=== PATIENT | male | born 1960 | race African-American/Black ===

== ENCOUNTER 2020-03-14 14:12 | Inpatient (IN) | payer OTHER, SELFPAY ==
[2020-03-14 16:28] VITALS: BMI 23.8
[2020-03-14] MEDS ORDERED: Ondansetron ODT 4 MG TAB SL PRN (17:13)
[2020-03-14] MEDS ORDERED: Ondansetron PF 4 MG/2 ML Vial IVP PRN (17:13)
[2020-03-14] MEDS ORDERED: Acetaminophen 325 MG TAB PO PRN (17:13)
[2020-03-14 17:17] LABS: Actual Bicarbonate (HCO3a) 19.9 mEq/L (22-28); Base Excess (BEa) -2.6 mEq/L (-2.0 to +3.0); CO2 Tension 29.1 mmHg (35.0-45.0); Calcium, Ionized (arterial) 1.11 mmol/L (1.12-1.30); Carboxyhemoglobin (COHb) 0.7 gm% (0.0-3.0); Hemoglobin (Hb) 15.1 g/dL (14.0-18.0); O2 Tension (PaO2), arterial 63.2 mmHg (80.0-100.0); Potassium - ABG Lab 4.31 mmol/L (3.70-5.30); Puncture Site LB; pH, Arterial 7.45 (7.35-7.45)
[2020-03-14 17:42] LABS: Troponin I 0.014 ng/mL (< 0.028)
--- NOTE | 2020-03-14 18:24 | PDOC.FPRHP ---
- History of Present Illness Chief Complaint: SOB History of Present Illness: Pt is a 59yo male with hx of COVID + on 03/13 who presents with SOB. "Breathing shallow" since yesterday, and felt badly dehydrated. Got results of COVID test yesterday. Last started with sx of productive cough with yellow sputum , body ache, fever. Temp at home 102F. When to ED on , was swabbed for COVID. 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 No N/V, diarrhea, CP, dizziness. No PCP. ED Course: Azithromycin, Rocephin, Decadron, 1L NS, 3L NC, ASA, motrin, tylenol - Allergies/Adverse Reactions Allergies Allergy/AdvReac Type Severity Reaction Status Date / Time No Known Allergies Allergy Verified 03/14/20 16:26 - Home Medications Medication Instructions Recorded Confirmed Type Albuterol Sulfate [Albuterol 2 puff IH Q4HR PRN 03/14/20 03/14/20 History Sulfate Hfa] - History PMHx: none PSHx: none FHx:mom- DM Social: no Tobacco, occasional use of alcohol, no drug use, lives by himself in [place] - Review of Systems General: reports: fever/chills, fatigue Eyes: denies: vision changes ENT: denies: nasal congestion Respiratory: reports: cough, shortness of breath Cardiovascular: denies: chest pain, palpitation Gastrointestinal: denies: nausea, vomiting, diarrhea Musculoskeletal: reports: pain Neurological: denies: numbness, syncope - Vital signs BP: 129/69, HR 82, RR 20, T 98.3F, O2 98% on 3L NC - Physical Exam Constitutional: NAD, awake, alert and oriented HEENT: normocephalic and atraumatic, grossly normal vision, grossly normal hearing Neck: supple, FROM Heart: RRR, normal S1/S2, no murmurs/rubs/gallops Lungs: CTAB, no respiratory distress, no wheezing -Lungs: on NC Abdomen: soft, non-tender, no masses/distention Musculoskeletal: normal structure, normal tone Neurological: no focal deficit Skin: no rash/lesions, good turgor Psychiatric: normal mood and affect, intact recent and remote memory FMR H&P: Results - Labs Lab results: ABG pH 7.45 (7.35-7.45) 03/14/20 17:05 ABG pCO2 29.1 mmHg (35.0-45.0) L 03/14/20 17:05 ABG pO2 63.2 mmHg (80.0-100.0) L 03/14/20 17:05 Additional comment: CXR: mild patchy infiltrates in lingula FMR H&P: A/P - Plan #Acute Hypoxic Respiratory Failure 2/2 COVID PNA - Labs: Cr 1.71, CK 586, AST/ALT 259/269, d-dimer 0.9, procal 1.12, CRP 16.18 - Imaging: CXR showing lingula infiltrate. CTA- no PE, fatty liver - was given therapeutic lovenox in ED, change to prophylactic according to [facility] COVID algorithm - Contact/droplet precautions - pending: LDH, CRP, Ferritin - Will trend D-Dimer - Continue azithro, rocephin and dexamethasone - currently on 3L NC, will wean as tolerated - Consulted ID, Dr Luna, will wait to see if he meets criteria for remdesevir or convalescent plasma, appreciate recs #Transaminitis - likely 2/2 COVID - AST/ALT 259/269 - Will trend #YEMI - BUN/Cr 21/1.71, we do not have previous labs to compare - Will trend. PO hydrate #Hx of DM - patient denies dx of DM, found in ED records - A1c pending, If >6.5, will place on SSI #Hx of HTN - patient denies, found in ED record - currently BP normal, will monitor Diet: Reg Ppx: lovenox PCP: none Dispo: admit to tele, inpt, LOS >48 hrs Case discussed with Dr. Crocker and Dr Robb Montez FMR H&P: Upper Level - Plan Date/Time: 03/14/201823 Leann Nick, have evaluated this patient and agree with findings/plan as outlined by video editing internship resident. Pertinent changes/additions are listed here. This is a 59yo AA M with no reported PMH who presents as a direct admit from [place] [facility] for increased SOB. He was diagnosed with COVID + on 03/13. He started with symptoms last on 03/08. He said at that time he was having body aches, fever, cough, sore throat. He went to the ER due to this on and that is when he was swabbed for COVID. He did not require O2 at that time. He states he continued having occasionally fevers over the weekend. He got the call yesterday that his result was positive. He came back to the ER due to increasing SOB, described as shallow. He denies any recent fevers. He believes he got infected from a co-worker. 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 He was placed on O2 at the outside ER. Started on abx, fluid bolus, and steroids. On exam here, he states that he is feeling much better with the O2. He denies any difficulty breathing at this time, but if he got up to go anywhere would likely have some difficulty. PE is unremarkable. Patient sitting up in bed, appears comfortable. Lungs sounds, clear with good air movement. See video editing internship note for full HPI Plan: Acute Hypoxic Resp Failure 2/2 COVID PNA WBC 6, lymphocytes 12, neutrophils 81.7. Procal 1.12. CRP 16.18. Ddimer 0.9 mcg/ ml. CTA neg for PE. ABG pH 7.45, CO2 29.1, Ow 63.2, base excess -2.6. CXR showing lingula infiltrate. - Contact/droplet precautions - Will give ppx lovenox as Crcl > 30, DDimer <2000ng/ml. If condition worsens can increase to th lovenox. - LDH, CRP, Ferritin pending. - Will trend procal - Trend D-Dimer - Continue azithro, rocephin and dexamethasone - ID (Jeremy) consulted to evaluate for conv. plasma or remdesivir. Onset of symptoms 03/08. - Monitor on telemetry Transaminitis likely 2/2 COVID AST/ALT 259/269 - Will trend YEMI BUN/Cr 21/1.71 - Will trend. PO hydrate Hx of DM Per ER record, patient denies. - A1c pending. If >6.5, will place on SS Hx of HTN Again, patient denied. - Will monitor VS q 4hr. Dispo: admit to tele, inpt Diet: Reg Ppx: lovenox PCP: none Case discussed with Dr. Crocker Addendum - Attending - Attending Attestation Date/Time: 03/14/202221 I personally evaluated the patient and discussed the management with Dr. Montez/ Alda I agree with the History, Examination, Assessment and Plan documented above with any addition or exceptions noted below- 59yo AA M with no reported PMH who presents as a direct admit from [place] [facility] for increased SOB. He was diagnosed with COVID + on 03/13. He started with symptoms last on 03/08. He said at that time he was having body aches, fever, cough, sore throat. He went to the ER due to this on and that is when he was swabbed for COVID. He did not require O2 at that time. He states he continued having occasionally fevers over the weekend. He got the call yesterday that his result was positive. He came back to the ER due to increasing SOB, described as shallow. He denies any recent fevers. PMH/PSH/Meds/SH reviewed and agree with resident's documentation. Afebrile VSS. Exam repeated by me and agree with resident's findings. Labs: WBC=6.0, H/H=15.8/50.8, Iwp=856, Rd=336, K=4.1, BUN/ Cr=21/1.71, Eakx=772, D-dimer=0.90, CRP=16.18, ABG=7.45/29/63/20 92%, INR=1.0. CTA chest- no PE. A/P: 1) Acute resp failure secondary to COVID 19 pneumonia - Saturating well with NC; continue to monitor for s/sx of decompensation. 2) COVID 19 pneumonia - continue rocephin and azithromycin. Started on dexamethasone. ID consulted; consider convalescent plasma. Monitor ferritin, LDH , D-dimer. Continue lovenox prophylaxis. 3) Transaminitis - possibly secondary to COVID; also fatty liver seen on CTA may be another etiology. Will check acute hepatitis panel.
[2020-03-14 20:27] LABS: Hemoglobin A1c 6.8 % (4.0-6.0)
[2020-03-14 20:44] LABS: Troponin I Less than 0.010 ng/mL (< 0.028)
[2020-03-14] MEDS ORDERED: Enoxaparin Sodium 40 MG/0.4 ML SYRINGE SC SCH (21:00)
[2020-03-14] MEDS ORDERED: Dexamethasone 4 mg/ml Vial SLOW IVP SCH (21:00)
[2020-03-14] MEDS ORDERED: Dextrose 50% Abboject 50 ML SYRINGE SLOW IVP PRN (21:10)
[2020-03-14] MEDS ORDERED: Dextrose 5% in Water 1,000 ML IV PRN (21:10)
[2020-03-14] MEDS ORDERED: HumaLOG 300 UNITS/3 ML VIAL SC PRN (21:10)
[2020-03-14 23:08] LABS: Syphilis Antibody Nonreactive (Nonreactive); Syphilis Antibody Index 0.25 S/CO (<1.00 Non-Reactive)
[2020-03-14 23:22] LABS: HBSAg Index 0.17 S/CO (0-0.99); Hep B Surf Ag Non-Reactive S/CO (NonReactive); Hep C IgG Ab Non-Reactive (NonReactive); Hep C Index 0.04 S/CO (0-0.79)
[2020-03-14 23:23] LABS: Hep A IgM AB Non-Reactive (NonReactive); Hep A IgM S/CO 0.19 S/CO (0-0.79)
[2020-03-14 23:24] LABS: HBCM Index 0.06 S/CO (0-0.79); Hepatitis B Core IgM Abs Non-Reactive (NonReactive)
[2020-03-14 23:34] LABS: HIV (1/2) Antibody/Antigen Non-Reactive (NonReactive); HIV 1/2 INDEX 0.14 S/CO (<1.00)
[2020-03-15 05:09] LABS: #Basophils 0.1 thou/uL (0.0-0.2); #Lymphocytes 0.7 thou/uL (1.20-3.40); #Monocytes 0.4 thou/uL (0.11-0.59); #Neutrophils 7.1 thou/uL (1.40-6.50); %Basophils 1.1 % (0.0-1.0); %Eosinophils 0.1 % (0.0-10.0); %Lymphocytes 8.5 % (21.0-51.0); %Neutrophils 85.2 % (42.0-75.0); Hemoglobin 15.3 g/dL (14.0-18.0); Mean Corpuscular HGB CONC 32.2 g/dL (32.0-36.0); Mean Corpuscular Hemoglobin 27.4 pg (27.0-31.0); Mean Corpuscular Volume 85.3 fL (78.0-98.0); Mean Platelet Volume 8.8 fL (7.4-10.4); Platelet Count 130 thou/uL (130-400); RBC Distribution Width 12.8 % (11.5-14.5); Red Blood Cell (RBC) Count 5.59 mill/uL (4.70-6.10); White Blood Cell (WBC) Count 8.4 thou/uL (4.8-10.8)
[2020-03-15 05:32] LABS: ALT (SGPT) 381 U/L (8-55); AST (SGOT) 397 U/L (5-34); Albumin 3.6 g/dL (3.5-5.0); Alkaline Phosphatase 67 U/L (40-110); Anion Gap 17 mmol/L (10-20); BUN (Urea Nitrogen) 19 mg/dL (8.4-25.7); Bilirubin, Total 0.4 mg/dL (0.2-1.2); CRP (Inflammatory) 14.47 mg/dL (= or < 0.5); Calc. Creatinine Clearance 83 mL/min (70-130); Calcium 8.5 mg/dL (7.8-10.44); Carbon Dioxide 20 mmol/L (22-29); Chloride 104 mmol/L (98-107); Estimated GFR-MDRD 83; Globulin 3.4 g/dL (2.4-3.5); Glucose 137 mg/dL (70-105); Potassium 4.6 mmol/L (3.5-5.1); Sodium 136 mmol/L (136-145)
--- NOTE | 2020-03-15 08:39 | PDOC.FM ---
- Subjective Subjective: This morning patient is doing very well. No acute events overnight. SOB much improved. No cough/congestion, fever/chills, n/v, diarrhea/constipation. No concerns for this morning. - Objective MAR Reviewed: Yes Vital Signs & Weight: Vital Signs (12 hours) Temp Pulse Resp BP Pulse Ox 03/15/20 08:00 98.8 F 93 18 138/84 92 L 03/15/20 04:00 98.1 F 88 20 134/83 93 L 03/14/20 21:11 98.3 F 82 20 129/69 96 Weight Weight 79.605 kg I&O: 03/14/20 03/15/20 03/16/20 06:59 06:59 06:59 Intake Total 640 Balance 640 Result Diagrams: 03/15/20 04:59 03/15/20 04:59 Phys Exam - Physical Examination Constitutional: NAD (resting comfortably, good spirits) HEENT: moist MMs Neck: supple Respiratory: no wheezing, no rales, no rhonchi, clear to auscultation bilateral Cardiovascular: RRR, no significant murmur, no rub Gastrointestinal: soft, non-tender, no distention, positive bowel sounds Musculoskeletal: no edema Neurological: moves all 4 limbs Psychiatric: normal affect, A&O x 3 Dx/Plan (1) COVID-19 Code(s): U07.1 - COVID-19 Status: Acute (2) Acute respiratory failure with hypoxia Code(s): J96.01 - ACUTE RESPIRATORY FAILURE WITH HYPOXIA Status: Acute - Plan Plan: 59yo AAM with h/o DMII, HTN presents for acute hypoxic respiratory failure /2 COVID PNA #Acute Hypoxic Respiratory Failure /2 COVID PNA - COVID-19 Positive on 03/09 in ED - Represented to ED on 03/14 with increased SOB and hypoxia - CXR with lingula infiltrate - CTA negative PE, viral changes to lungs, fatty liver - D-Dimer 0.9, Procal 1.12, CRP 16.18, Ferritin 6054 - Rocephin and Azithro (03/14) - Cont dexamathasome - Dr. Luna, ID, consulted, apprec recs, for potential convalescent plasma or other therapy - Currently on 3L NC and satting well with no sxs, will wean as tolerated - VTE lovenox, will trend D-dimer #Transaminitis - likely 2/2 COVID - AST/ALT 259/269 -> 397/381 - Hep, RPR, HIV, negative - will trend #YEMI, resolved - Cr 1.71 -> 1.11 #DM - A1C 6.8, diabetes protocol - likely benefit from metformin as outpatient and needs to establish with PCP #Hx of HTN - patient denies, found in ED record - currently BP normal, will monitor Code: Full Diet: Reg KIM: SL Ppx: lovenox PCP: none Dispo: Admitted to tele inpt, Dr. Luna consulted, wean O2 as tolerated, monitor resp status. Anticipate LOS > 48hrs. Addendum - Attending - Attending Attestation Date/Time: 03/15/20 1051 I personally evaluated the patient and discussed the management with Dr. Kenyon. I agree with the History, Examination, Assessment and Plan documented above with any addition or exceptions noted below. Patient stable. Continue COVID care, O2 as needed. Awaiting ID consult regarding plasma. Suspect no remdesevir due to his abnormal LFTs.
[2020-03-15] MEDS ORDERED: Enoxaparin Sodium 40 MG/0.4 ML SYRINGE SC SCH (09:00)
[2020-03-15] MEDS: Dexamethasone 4 mg/ml Vial SLOW IVP SCH ×2 (09:21→19:26)
[2020-03-15] MEDS ORDERED: cefTRIAXone\\ROCEPHIN 2 GM in Sodium Chloride 0.9% 100 ML IVPB SCH (13:00)
[2020-03-15] MEDS ORDERED: Azithromycin 500 MG in Sodium Chloride 0.9% 250 ML 250 ML IVPB SCH (14:00)
--- NOTE | 2020-03-15 18:33 | CON ---
DATE OF CONSULTATION: 03/15/2020 REASON FOR CONSULTATION: COVID pneumonia. HISTORY OF PRESENT ILLNESS: A 59-year-old who has a history of hypertension and type 2 diabetes mellitus, who was in the usual state until about 6 or 7 days before admission when he developed myalgias, fever, and general malaise. Subsequently, he developed cough and some shortness of breath. He was tested positive for COVID on 03/13. In the emergency room, he was given symptomatic treatment and sent home and now is admitted to the hospital with hypoxemia. His O2 saturations were 90% on 3 L, BP is 130/80, pulse 111, and he is breathing 22 times a minute. He started on Decadron and he was not given any antiviral treatment just yet. He is right now feeling better. He has O2 supplementation at 3 L nasal cannula. He denies any headaches at the moment. No sore throat, odynophagia, or dysphagia. Some cough, but not much. Dyspnea has improved. No chest pain. No back pain. No abdominal pain or diarrhea. No genitourinary symptoms. No joint symptoms. PAST MEDICAL HISTORY: 1. Hypertension. 2. Type 2 diabetes. SOCIAL HISTORY: Lives in [place] by himself. He has family around. He has 6 children, from the . No smoking. No drinking. 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 ALLERGIES: NONE. CURRENT MEDICATIONS: 1. Azithromycin. 2. Ceftriaxone. 3. Decadron. 4. Enoxaparin. 5. Glucagon. FAMILY HISTORY: Noncontributory. Apparently acquired from somebody at work. OBJECTIVE: VITAL SIGNS: T-max 99.8, his saturations now are ranging from 92 to 94 on 3 L nasal cannula, and BP 130/77. SKIN: Unremarkable. No lymphadenopathy. HEENT: Ocular movements conjugate. Sclerae white. Pupils are equal. Conjunctivae normal. Oral cavity normal. Numerous teeth in place in fairly decent shape. NECK: Supple. No jugular vein distention. LUNGS: Symmetric air entry. A few faint crackles at the bases. HEART: S1 and S2. Regular rate. No murmurs. No S3 or S4. ABDOMEN: Soft, not distended or tender. No ascites. No bladder distention. EXTREMITIES: No joint inflammatory activity. Moves extremities equally. No edema. Pulses 1+ in dorsalis pedis. LABORATORY DATA: Sodium 136 and creatinine 1.11. His ferritin was very high at 6000. AST 397, ALT 381, and LDH 1097. Last time CK was checked is yesterday, it was 586. CRP 14. Albumin 3.6. D-dimer was 0.64. CT with bilateral ground-glass opacities, particularly in the lower lung falcon. ASSESSMENT: 1. Type 2 diabetes. 2. Hypertension. 3. COVID pneumonia, moderate to severe. PLAN: We will repeat the CPK and transaminases tomorrow. Hopefully, we will be able to give him remdesivir starting tomorrow or the day after. We will give him plasma today. Continue Decadron. Discontinue antimicrobials. O2 supplementations and enoxaparin b.i.d. Monitor inflammatory markers. Job ID: [id number]
[2020-03-15] MEDS: HumaLOG 300 UNITS/3 ML VIAL SC PRN (18:42)
[2020-03-15] MEDS: Enoxaparin Sodium 40 MG/0.4 ML SYRINGE SC SCH (19:26)
[2020-03-16 05:21] LABS: ALT (SGPT) 275 U/L (8-55); AST (SGOT) 162 U/L (5-34); Albumin 3.5 g/dL (3.5-5.0); Alkaline Phosphatase 66 U/L (40-110); Anion Gap 15 mmol/L (10-20); BUN (Urea Nitrogen) 21 mg/dL (8.4-25.7); Bilirubin, Total 0.4 mg/dL (0.2-1.2); Calc. Creatinine Clearance 77 mL/min (70-130); Calcium 8.4 mg/dL (7.8-10.44); Carbon Dioxide 23 mmol/L (22-29); Chloride 106 mmol/L (98-107); Estimated GFR-MDRD 76; Globulin 3.3 g/dL (2.4-3.5); Glucose 137 mg/dL (70-105); Potassium 4.5 mmol/L (3.5-5.1); Protein, Total 6.8 g/dL (6.0-8.3); Sodium 139 mmol/L (136-145)
[2020-03-16 05:24] LABS: Band 21 % (5-11); Hemoglobin 14.2 g/dL (14.0-18.0); Lymphocytes 5 % (21-51); MDiff Complete? YES; Mean Corpuscular Hemoglobin 27.3 pg (27.0-31.0); Mean Corpuscular Volume 85.4 fL (78.0-98.0); Mean Platelet Volume 8.9 fL (7.4-10.4); Monocytes 3 % (0-10); Neutrophil 71 % (42-75); Platelet Count 166 thou/uL (130-400); Platelet Morphology Comment Appears Adequate; RBC Distribution Width 12.8 % (11.5-14.5); RBC Morphology Normal; Red Blood Cell (RBC) Count 5.21 mill/uL (4.70-6.10); White Blood Cell (WBC) Count 9.8 thou/uL (4.8-10.8)
[2020-03-16] MEDS: Enoxaparin Sodium 40 MG/0.4 ML SYRINGE SC SCH ×2 (08:31→21:14)
[2020-03-16] MEDS: Dexamethasone 4 mg/ml Vial SLOW IVP SCH ×2 (08:31→21:14)
--- NOTE | 2020-03-16 08:36 | PDOC.FM ---
- Subjective Subjective: Patient is doing very well this morning. He states SOB is much improved. Denies any CP, congestion, n/v, fever/chills. Tolerating PO intake. S/p convalescent plasma yesterday. - Objective MAR Reviewed: Yes Vital Signs & Weight: Vital Signs (12 hours) Temp Pulse Pulse Resp BP BP Pulse Ox 03/16/20 04:10 98.3 F 83 24 H 142/83 H 93 L 03/15/20 22:00 98.8 F 94 28 H 135/78 92 L 03/15/20 20:50 99.1 F 99 30 H 133/81 92 L 03/15/20 20:35 99.0 F 95 32 H 141/81 H 93 L Weight Weight 79.605 kg I&O: 03/15/20 03/16/20 03/17/20 06:59 06:59 06:59 Intake Total 640 610 Output Total 725 Balance 640 -115 Result Diagrams: 03/16/20 04:31 03/16/20 04:31 Phys Exam - Physical Examination Constitutional: NAD (resting comfortably, good spirits) HEENT: moist MMs Neck: supple Respiratory: no wheezing, no rales, no rhonchi, clear to auscultation bilateral Cardiovascular: RRR, no significant murmur, no rub Gastrointestinal: soft, non-tender, no distention, positive bowel sounds Musculoskeletal: no edema Psychiatric: normal affect, A&O x 3 Dx/Plan (1) COVID-19 Code(s): U07.1 - COVID-19 Status: Acute (2) Acute respiratory failure with hypoxia Code(s): J96.01 - ACUTE RESPIRATORY FAILURE WITH HYPOXIA Status: Acute - Plan Plan: 59yo AAM with h/o DMII, HTN presents for acute hypoxic respiratory failure /2 COVID PNA #Acute Hypoxic Respiratory Failure / COVID PNA - COVID-19 Positive on 03/09 in ED - Represented to ED on 03/14 with increased SOB and hypoxia - CXR with lingula infiltrate - CTA negative PE, viral changes to lungs, fatty liver - D-Dimer 0.9-> 0.38, Procal 1.12, CRP 16.18, Ferritin 6054 - Discontinued Rocephin and Azithro (03/14-03/15) - Cont dexamathasome - Dr. Luna, ID, consulted, apprec recs, s/p convalescent plasma, Lovenox BID, stop abx, potential remdesivir - O2 requirement increased to 4L NC and satting low 90s, will monitor resp status - VTE lovenox, will trend D-dimer #Transaminitis, improved - likely 2/2 COVID - AST/ALT 397/381 -> 162/275 - Hep, RPR, HIV, negative - will trend #YEMI, resolved - Cr 1.71 -> 1.11 #DM - A1C 6.8, diabetes protocol - likely benefit from metformin as outpatient and needs to establish with PCP #Hx of HTN - patient denies, found in ED record - currently BP normal, will monitor Code: Full Diet: Reg KIM: SL Ppx: lovenox BID PCP: none Dispo: Admitted to tele inpt, Dr. Luna consulted, monitor resp status. Continue COVID tx. Anticipate LOS > 48hrs. Addendum - Attending - Attending Attestation Date/Time: 03/16/20 1108 I personally evaluated the patient and discussed the management with Dr. Kenyon. I agree with the History, Examination, Assessment and Plan documented above with any addition or exceptions noted below. Patient overall stable. Continue treatment for hypoxia from COVID. ID on board. LFTs improved.
[2020-03-17 05:31] LABS: ALT (SGPT) 244 U/L (8-55); AST (SGOT) 115 U/L (5-34); Albumin 3.5 g/dL (3.5-5.0); Alkaline Phosphatase 69 U/L (40-110); Alkaline Phosphatase 70 U/L (40-110); Anion Gap 15 mmol/L (10-20); BUN (Urea Nitrogen) 25 mg/dL (8.4-25.7); Bilirubin, Direct 0.2 mg/dL (0.1-0.3); Bilirubin, Total 0.4 mg/dL (0.2-1.2); CRP (Inflammatory) 7.12 mg/dL (= or < 0.5); Calc. Creatinine Clearance 89 mL/min (70-130); Calcium 8.5 mg/dL (7.8-10.44); Carbon Dioxide 22 mmol/L (22-29); Chloride 107 mmol/L (98-107); Estimated GFR-MDRD 90; Globulin 3.4 g/dL (2.4-3.5); Glucose 137 mg/dL (70-105); Potassium 4.5 mmol/L (3.5-5.1); Protein, Total 6.8 g/dL (6.0-8.3); Protein, Total 6.9 g/dL (6.0-8.3); Sodium 139 mmol/L (136-145)
--- NOTE | 2020-03-17 05:40 | PDOC.FM ---
- Subjective Subjective: Patient reports overall feeling improved. No acute overnight events. He was able to wean down to 2.5L from 3L overnight. He denies CP, SOB, diarrhea, abd pain. - Objective MAR Reviewed: Yes Vital Signs & Weight: Vital Signs (12 hours) Temp Pulse Resp BP Pulse Ox 03/17/20 05:10 98 F 83 22 H 158/89 H 90 L 03/17/20 01:35 98.8 F 83 24 H 152/88 H 93 L 03/16/20 21:09 98.1 F 87 20 160/88 H 93 L Weight Weight 79.605 kg I&O: 03/15/20 03/16/20 03/17/20 06:59 06:59 06:59 Intake Total 768 653 709 Output Total 726 4937 Balance 104 -504 -132 Result Diagrams: 03/17/20 04:45 03/17/20 04:45 Phys Exam - Physical Examination Constitutional: NAD HEENT: moist MMs Respiratory: no wheezing fine crackles throughout, good air movement, no increased work of breathing Cardiovascular: RRR, no significant murmur Gastrointestinal: soft, non-tender, no distention, positive bowel sounds Musculoskeletal: no edema Neurological: moves all 4 limbs Psychiatric: normal affect, A&O x 3 Skin: cap refill <2 seconds Dx/Plan (1) Acute respiratory failure with hypoxia Code(s): J96.01 - ACUTE RESPIRATORY FAILURE WITH HYPOXIA Status: Acute (2) COVID-19 Code(s): U07.1 - COVID-19 Status: Acute (3) Transaminitis Code(s): R74.0 - NONSPEC ELEV OF LEVELS OF TRANSAMNS & LACTIC ACID DEHYDRGNSE Status: Acute (4) Hypertension Code(s): I10 - ESSENTIAL (PRIMARY) HYPERTENSION Status: Acute - Plan Plan: 59yo AAM with h/o DMII, HTN presents for acute hypoxic respiratory failure 2/2 COVID PNA Acute Hypoxic Respiratory Failure 2/2 COVID PNA -Day 10 of illness, improving overall -D-dimer, Ferritin,CRP all downtrending -Discontinued Rocephin and Azithro (03/14-03/15) -Cont dexamathasome per ID recs -s/p convalescent plasma on 03/15, potential remdesivir if LFT's improve, await ID recs -Lovenox BID Transaminitis, improving - likely 2/2 COVID vs fatty liver seen on CT - AST/ALT 162/275 -> 115/244 - Hep, RPR, HIV, negative DM - A1C 6.8, diabetes protocol, currently on Dexamethasone so expect higher sugars , SSI and hypoglycemia protocol in place - likely benefit from metformin as outpatient and needs to establish with PCP HTN -persistently elevated, previously on HCTZ, will restart today Code: Full Diet: Reg KIM: SL Ppx: lovenox BID PCP: none Dispo: Admitted to tele inpt. Continue COVID tx. Discharge pending improved respiratory status. Anticipate LOS > 48hrs. Addendum - Attending - Attending Attestation Date/Time: 03/17/20 0709 I personally evaluated the patient and discussed the management with Dr. Barr. I agree with the History, Examination, Assessment and Plan documented above with any addition or exceptions noted below. Patient overall stable. Continue COVID treatment, wean O2 as tolerated. He is s/ p plasma.
[2020-03-17 06:27] LABS: Band 3 % (5-11); Hemoglobin 14.1 g/dL (14.0-18.0); Lymphocytes 6 % (21-51); MDiff Complete? YES; Mean Corpuscular HGB CONC 31.6 g/dL (32.0-36.0); Mean Corpuscular Hemoglobin 26.8 pg (27.0-31.0); Mean Corpuscular Volume 84.7 fL (78.0-98.0); Mean Platelet Volume 8.1 fL (7.4-10.4); Monocytes 1 % (0-10); Neutrophil 90 % (42-75); Platelet Count 237 thou/uL (130-400); Platelet Morphology Comment Appears Adequate; RBC Distribution Width 13.1 % (11.5-14.5); RBC Morphology Normal; Red Blood Cell (RBC) Count 5.26 mill/uL (4.70-6.10); White Blood Cell (WBC) Count 10.9 thou/uL (4.8-10.8)
[2020-03-17] MEDS ORDERED: Hydrochlorothiazide 25 MG TAB PO SCH (09:00)
[2020-03-17] MEDS: Dexamethasone 4 mg/ml Vial SLOW IVP SCH ×2 (09:49→21:37)
[2020-03-17] MEDS: Enoxaparin Sodium 40 MG/0.4 ML SYRINGE SC SCH ×2 (09:49→21:37)
--- NOTE | 2020-03-17 16:35 | PRG ---
DATE OF SERVICE: 03/17/2020 SUBJECTIVE: The patient feels a little better, still coughing intermittently. No diarrhea. No abdominal pain. No chest pain. OBJECTIVE: VITAL SIGNS: He has been afebrile, breathing now not as fast as 18 times a minute. His O2 saturations are about 92 with 4 L nasal cannula. He was down to 2.5 L/minute, now is up to 4 again, but setting a little better. LUNGS: Symmetric air entry. HEART: S1, S2. Regular rate. No obvious crackles. No wheezing. ABDOMEN: Soft, not distended. NEUROLOGIC: Unchanged. LABORATORY DATA: Sodium 139, creatinine 1.03. Transaminases are still high unfortunately at 115 and 244, and CRP is down to 7.12, which is half what it was when he came in. The ferritin was decreased to 4600. D-dimer is down to 0.37. He continues on Decadron, enoxaparin. He received plasma, but did not receive remdesivir due to the liver function abnormality. ASSESSMENT AND DISCUSSION: Type 2 diabetes, hypertension, COVID pneumonia, moderate to severe transaminitis. He was not able to get remdesivir, a little bit of improvement in the markers, still requiring quite a bit of O2 nasal cannula supplementation. We will see how he does going forward. This is the 10th day following initiation of symptoms, so he is getting out of range from remdesivir at this point. Job ID: [id number]
[2020-03-18 05:08] LABS: ALT (SGPT) 255 U/L (8-55); AST (SGOT) 91 U/L (5-34); Albumin 3.6 g/dL (3.5-5.0); Alkaline Phosphatase 70 U/L (40-110); Anion Gap 17 mmol/L (10-20); BUN (Urea Nitrogen) 30 mg/dL (8.4-25.7); Band 6 % (5-11); Bilirubin, Total 0.5 mg/dL (0.2-1.2); CRP (Inflammatory) 3.83 mg/dL (= or < 0.5); Calc. Creatinine Clearance 84 mL/min (70-130); Calcium 8.9 mg/dL (7.8-10.44); Carbon Dioxide 21 mmol/L (22-29); Chloride 104 mmol/L (98-107); Estimated GFR-MDRD 85; Globulin 3.6 g/dL (2.4-3.5); Glucose 146 mg/dL (70-105); Hemoglobin 14.6 g/dL (14.0-18.0); Lymphocytes 13 % (21-51); MDiff Complete? YES; Mean Corpuscular HGB CONC 32.1 g/dL (32.0-36.0); Mean Corpuscular Hemoglobin 27.1 pg (27.0-31.0); Mean Corpuscular Volume 84.4 fL (78.0-98.0); Mean Platelet Volume 8.1 fL (7.4-10.4); Metamyelocyte 2 % (0-0); Monocytes 7 % (0-10); Neutrophil 72 % (42-75); Platelet Count 279 thou/uL (130-400); Platelet Morphology Comment Appears Adequate; Potassium 4.6 mmol/L (3.5-5.1); Protein, Total 7.2 g/dL (6.0-8.3); RBC Distribution Width 13.1 % (11.5-14.5); RBC Morphology Normal; Red Blood Cell (RBC) Count 5.41 mill/uL (4.70-6.10); Sodium 137 mmol/L (136-145); White Blood Cell (WBC) Count 8.9 thou/uL (4.8-10.8)
--- NOTE | 2020-03-18 05:24 | PDOC.FM ---
- Subjective Subjective: Patient doing well however with any movement does tend to have desaturations and increased O2 requirement. Tried to take a shower yesterday and walking to the bathroom was desaturating enough he had to lay back down. He was able to wean down on O2 yesterday to 2L but again this morning with movement requires increase to 4L. He denies SOB, CP, diarrhea, abd pain. - Objective MAR Reviewed: Yes Vital Signs & Weight: Vital Signs (12 hours) Temp Pulse Resp BP Pulse Ox 03/18/20 03:25 98.3 F 80 18 166/89 H 95 03/17/20 21:40 95 03/17/20 20:00 97.9 F 80 16 173/97 H 95 03/17/20 18:08 86 96 Weight Weight 79.605 kg I&O: 03/16/20 03/17/20 03/18/20 06:59 06:59 06:59 Intake Total 610 702 480 Output Total 725 7481 680 Balance -187 -248 -827 Result Diagrams: 03/18/20 04:22 03/18/20 04:22 Phys Exam - Physical Examination Constitutional: NAD HEENT: moist MMs Respiratory: no wheezing Fine crackles throuhgout, no increased work of breathing Cardiovascular: RRR, no significant murmur Gastrointestinal: soft, non-tender, no distention Musculoskeletal: no edema, pulses present Neurological: moves all 4 limbs Psychiatric: A&O x 3 Skin: cap refill <2 seconds Dx/Plan (1) Acute respiratory failure with hypoxia Code(s): J96.01 - ACUTE RESPIRATORY FAILURE WITH HYPOXIA Status: Acute (2) COVID-19 Code(s): U07.1 - COVID-19 Status: Acute (3) Transaminitis Code(s): R74.0 - NONSPEC ELEV OF LEVELS OF TRANSAMNS & LACTIC ACID DEHYDRGNSE Status: Acute (4) Hypertension Code(s): I10 - ESSENTIAL (PRIMARY) HYPERTENSION Status: Acute - Plan Plan: 59yo AAM with h/o DMII, HTN presents for acute hypoxic respiratory failure 2/2 COVID PNA Acute Hypoxic Respiratory Failure 2/2 COVID PNA -Day 11 of illness, improving overall however slowly and still requiring quite a bit of O2 via NC -D-dimer, Ferritin,CRP all downtrending -Discontinued Rocephin and Azithro (03/14-03/15) -Cont dexamathasome per ID recs -s/p convalescent plasma on 03/15, LFTs were too elevated for Remdesiver and now out of the time frame for Remdesivir, ID following. -Lovenox BID Transaminitis, improving - likely 2/2 COVID vs fatty liver seen on CT - AST/ALT 162/275 -> 115/244 - Hep, RPR, HIV, negative DM - A1C 6.8, diabetes protocol, currently on Dexamethasone so expect higher sugars , SSI and hypoglycemia protocol in place - likely benefit from metformin as outpatient and needs to establish with PCP HTN -Added HCTZ yesterday but remain high, will increase to 25mg daily Code: Full Diet: Reg KIM: SL Ppx: lovenox BID PCP: none Dispo: Admitted to tele inpt. Continue COVID tx. Discharge pending improved respiratory status. Anticipate LOS > 48hrs. Addendum - Attending - Attending Attestation Date/Time: 03/18/20 0704 I personally evaluated the patient and discussed the management with Dr. Barr. I agree with the History, Examination, Assessment and Plan documented above with any addition or exceptions noted below. Patient overall stable. He does have desaturations with activity but recovers quickly. Continue steroids, he is s/p plasma infusion, and currently not Remdesevir candidate. Continue to wean O2 as tolerated. Increase activity as able. Inflammatory markers decreasing.
[2020-03-18] MEDS ORDERED: Hydrochlorothiazide 25 MG TAB PO SCH (09:00)
[2020-03-18] MEDS: Hydrochlorothiazide 25 MG TAB PO SCH (09:14)
[2020-03-18] MEDS: Enoxaparin Sodium 40 MG/0.4 ML SYRINGE SC SCH ×2 (09:14→19:04)
[2020-03-18] MEDS: Dexamethasone 4 mg/ml Vial SLOW IVP SCH ×2 (09:14→19:04)
[2020-03-18] MEDS: HumaLOG 300 UNITS/3 ML VIAL SC PRN (13:06)
[2020-03-19 04:41] LABS: #Neutrophils 6.6 thou/uL (1.40-6.50); %Basophils 0.3 % (0.0-1.0); %Eosinophils 0.2 % (0.0-10.0); %Lymphocytes 11.4 % (21.0-51.0); %Monocytes 11.3 % (0.0-10.0); %Neutrophils 76.8 % (42.0-75.0); Hemoglobin 15.8 g/dL (14.0-18.0); Mean Corpuscular HGB CONC 31.8 g/dL (32.0-36.0); Mean Corpuscular Hemoglobin 26.6 pg (27.0-31.0); Mean Corpuscular Volume 83.7 fL (78.0-98.0); Mean Platelet Volume 7.6 fL (7.4-10.4); Platelet Count 372 thou/uL (130-400); RBC Distribution Width 12.8 % (11.5-14.5); Red Blood Cell (RBC) Count 5.95 mill/uL (4.70-6.10); White Blood Cell (WBC) Count 8.7 thou/uL (4.8-10.8)
[2020-03-19 04:52] LABS: ALT (SGPT) 255 U/L (8-55); AST (SGOT) 62 U/L (5-34); Albumin 3.8 g/dL (3.5-5.0); Alkaline Phosphatase 70 U/L (40-110); Anion Gap 16 mmol/L (10-20); BUN (Urea Nitrogen) 31 mg/dL (8.4-25.7); Bilirubin, Total 0.5 mg/dL (0.2-1.2); Calc. Creatinine Clearance 83 mL/min (70-130); Calcium 9.2 mg/dL (7.8-10.44); Carbon Dioxide 22 mmol/L (22-29); Chloride 102 mmol/L (98-107); Estimated GFR-MDRD 83; Globulin 3.9 g/dL (2.4-3.5); Glucose 156 mg/dL (70-105); Potassium 4.7 mmol/L (3.5-5.1); Protein, Total 7.7 g/dL (6.0-8.3); Sodium 135 mmol/L (136-145)
--- NOTE | 2020-03-19 06:59 | PDOC.FM ---
- Subjective Subjective: Pt feeling well this morning. No acute events overnight. Requesting to go home today. Denies any current SOB while resting in bed. States he has gotten up from bed to go to bathroom without difficulty or worsening SOB. States he lives alone but has family and others in town and nearby to assist with at home needs. - Objective Vital Signs & Weight: Vital Signs (12 hours) Temp Pulse Resp BP Pulse Ox 03/19/20 04:00 98.4 F 82 22 H 147/93 H 97 03/18/20 23:42 98.6 F 80 24 H 139/82 96 03/18/20 19:48 98.5 F 88 22 H 145/86 H 96 Weight Weight 79.605 kg I&O: 03/17/20 03/18/20 03/19/20 06:59 06:59 06:59 Intake Total 702 680 890 Output Total 2725 322 2271 Balance -019 -265 -674 Result Diagrams: 03/19/20 04:19 03/19/20 04:18 Phys Exam - Physical Examination Constitutional: NAD HEENT: sclera anicteric Basilar fine rales good air movement Cardiovascular: RRR, no significant murmur Gastrointestinal: soft, non-tender, positive bowel sounds Musculoskeletal: no edema, pulses present Neurological: moves all 4 limbs Psychiatric: normal affect, A&O x 3 Skin: no rash Dx/Plan - Plan Plan: 59yo AAM with h/o DMII, HTN presents for acute hypoxic respiratory failure 2/2 COVID PNA Acute Hypoxic Respiratory Failure 2/2 COVID PNA -Day 12 of illness, improving overall, weaned pt in room to off supplemental O2 with sats 93-96% -Will plan for walking trial and assess pt for O2 home needs -D-dimer, Ferritin,CRP all downtrending -Cont dexamathasome, will continue oral outpt -s/p convalescent plasma on 03/15, Remdesivir not option due to elevated LFT and duration of illness -Lovenox BID, pt is uninsured so outpt anticoagulation options will be limited Transaminitis, improving - likely 2/2 COVID vs fatty liver seen on CT - COVID more likely as downtrending LFTs with resolution of illness - Hep, RPR, HIV, negative DM - A1C 6.8, diabetes protocol, currently on Dexamethasone so expect higher sugars , SSI and hypoglycemia protocol in place - likely benefit from metformin as outpatient and needs to establish with PCP HTN -HCTZ increased to 25mg daily Code: Full Diet: Reg KIM: SL Ppx: lovenox BID PCP: none Dispo: Admitted to tele inpt. Continue COVID tx. Will assess O2 requirements with walking test today. If he maintains current status and low supplemental O2 requirements will be able to DC later today. Addendum - Attending - Attending Attestation Date/Time: 03/19/20 2210 I personally evaluated the patient and discussed the management with the team. I agree with the History, Examination, Assessment and Plan documented above with any addition or exceptions noted below. Continue to wean O2 and begin spacing steroids.
[2020-03-19] MEDS: Dexamethasone 4 mg/ml Vial SLOW IVP SCH ×2 (08:29→19:18)
[2020-03-19] MEDS: Enoxaparin Sodium 40 MG/0.4 ML SYRINGE SC SCH ×2 (08:29→19:19)
[2020-03-19] MEDS: Hydrochlorothiazide 25 MG TAB PO SCH (08:29)
[2020-03-20 04:52] LABS: #Lymphocytes 1.1 thou/uL (1.20-3.40); #Monocytes 0.9 thou/uL (0.11-0.59); #Neutrophils 6.7 thou/uL (1.40-6.50); %Basophils 0.3 % (0.0-1.0); %Eosinophils 0.5 % (0.0-10.0); %Lymphocytes 12.6 % (21.0-51.0); %Monocytes 10.6 % (0.0-10.0); %Neutrophils 75.9 % (42.0-75.0); Hemoglobin 16.3 g/dL (14.0-18.0); Mean Corpuscular HGB CONC 32.2 g/dL (32.0-36.0); Mean Corpuscular Hemoglobin 26.9 pg (27.0-31.0); Mean Corpuscular Volume 83.5 fL (78.0-98.0); Mean Platelet Volume 7.3 fL (7.4-10.4); Platelet Count 429 thou/uL (130-400); RBC Distribution Width 12.9 % (11.5-14.5); Red Blood Cell (RBC) Count 6.08 mill/uL (4.70-6.10); White Blood Cell (WBC) Count 8.8 thou/uL (4.8-10.8)
[2020-03-20 05:18] LABS: ALT (SGPT) 216 U/L (8-55); AST (SGOT) 46 U/L (5-34); Albumin 3.9 g/dL (3.5-5.0); Alkaline Phosphatase 72 U/L (40-110); Anion Gap 19 mmol/L (10-20); BUN (Urea Nitrogen) 32 mg/dL (8.4-25.7); Bilirubin, Total 0.5 mg/dL (0.2-1.2); Calc. Creatinine Clearance 75 mL/min (70-130); Calcium 9.3 mg/dL (7.8-10.44); Carbon Dioxide 19 mmol/L (22-29); Chloride 100 mmol/L (98-107); Estimated GFR-MDRD 74; Globulin 3.9 g/dL (2.4-3.5); Glucose 150 mg/dL (70-105); Potassium 4.9 mmol/L (3.5-5.1); Protein, Total 7.8 g/dL (6.0-8.3); Sodium 133 mmol/L (136-145)
--- NOTE | 2020-03-20 07:20 | PDOC.FM ---
- Subjective Subjective: Pt again states he is feeling well this morning. He was "light footed" yesterday when first ambulating but stated the more he moved around the more he felt he gained his balance. We discussed what his medication regimen will be upon DC and he expressed understanding. Discussed COVID19 disease course and that he would be infective for 20 days from the onset of sx. - Objective Vital Signs & Weight: Vital Signs (12 hours) Temp Pulse Resp BP Pulse Ox 03/20/20 03:35 98.4 F 91 22 H 136/81 99 03/19/20 23:35 98.1 F 87 22 H 132/85 95 03/19/20 20:00 98.0 F 100 20 132/88 96 Weight Weight 79.605 kg I&O: 03/19/20 03/20/20 03/21/20 06:59 06:59 06:59 Intake Total 890 840 Output Total 3060 1125 Balance -529 -694 Result Diagrams: 03/20/20 04:30 03/20/20 04:30 Phys Exam - Physical Examination Constitutional: NAD HEENT: sclera anicteric Fine basilar rales Good air movement, borderline tachypnea Cardiovascular: RRR, no significant murmur Gastrointestinal: soft, non-tender Neurological: non-focal, moves all 4 limbs Psychiatric: normal affect, A&O x 3 Skin: no rash Dx/Plan - Plan Plan: Acute Hypoxic Respiratory Failure 2/2 COVID PNA -Day 13 of illness, stable sats at 0.5L supplemental O2 - Passed walking trial on 2L O2 yesterday but had some unsteadiness -D-dimer, Ferritin,CRP all downtrending -Dex transitioned to PO prednisone, will taper outpt -s/p convalescent plasma on 03/15, Remdesivir not option due to elevated LFT and duration of illness -Lovenox BID transitioned to Eliquis, coupon acquired for free month to continue outpt Transaminitis, improving - likely 2/2 COVID vs fatty liver seen on CT - COVID more likely as downtrending LFTs with resolution of illness - Hep, RPR, HIV, negative DM - A1C 6.8, diabetes protocol, currently on Dexamethasone so expect higher sugars , SSI and hypoglycemia protocol in place - metformin on DC, f/u with PCP HTN -HCTZ increased to 25mg daily Code: Full Diet: Reg KIM: SL Ppx: lovenox BID PCP: none Dispo: Admitted to tele inpt. Will arrange for home O2 today. CM assistance with DC planning. Pt to work with PT. If able to set up everything will plan for DC later today. Addendum - Attending - Attending Attestation Date/Time: 03/20/20 3219 I personally evaluated the patient and discussed the management with Dr. Mcgowan. I agree with the History, Examination, Assessment and Plan documented above with any addition or exceptions noted below.
[2020-03-20] MEDS ORDERED: predniSONE 20 MG TAB PO SCH (08:00)
[2020-03-20] MEDS ORDERED: Apixaban 5 MG TAB PO SCH (09:00)
[2020-03-20] MEDS: Hydrochlorothiazide 25 MG TAB PO SCH (09:10)
[2020-03-20 16:15] VITALS: BP 129/85; TEMP 98.5
--- NOTE | 2020-03-22 02:18 | DIS ---
DATE OF ADMISSION: 03/14/2020 DATE OF DISCHARGE: 03/20/2020 ADMITTING ATTENDING: Dr. Kush Mauro. DISCHARGE ATTENDING: Dr. Wale Payne. RESIDENT: Dr. Young Mcgowan. CONSULTS: Infectious Disease, Dr. Mj Luna. PROCEDURES: None. IMAGING: None. PRIMARY DIAGNOSIS: Acute hypoxic respiratory failure secondary to COVID pneumonia. SECONDARY DIAGNOSES: Transaminitis, acute kidney injury, diabetes type 2, and hypertension. DISCHARGE MEDICATIONS: 1. Albuterol HFA two puffs q.4 hours p.r.n. 2. Eliquis 5 mg p.o. b.i.d. 3. Hydrochlorothiazide 25 mg daily. 4. Prednisone 40 mg daily, tapering by half dose q.4 days. 5. Metformin 500 mg q.a.m. HISTORY OF PRESENT ILLNESS AND HOSPITAL COURSE: A 59-year-old male with history of COVID pneumonia that was diagnosed on 03/13/2020, presented to the emergency department with complaints of shortness of breath. The patient stated that his symptoms started on 03/08, which included fever, shortness of breath, cough, and body aches. He stated that these symptoms continued to worsen, prompting him to seek evaluation in the emergency department. In the emergency department, he received azithromycin, Rocephin, Decadron, and 1 L of normal saline. The patient was subsequently admitted to the COVID observation floor for continued monitoring. Over the next several days, the patient continually had his oxygen slowly weaned as tolerated. He was started on full anticoagulation initially with Lovenox that was then transitioned to oral Eliquis for the patient to continue as an outpatient for an entire month. He was also started on steroids at the beginning of his hospitalization. These were then transitioned to orals with a q.4 day taper to continue as an outpatient. While the patient was in the hospital, he was also found to be new onset type 2 diabetes and with hypertension. He was started on low-dose metformin and hydrochlorothiazide for this and instructed to follow up with his primary care doctor for continued monitoring and medication titration. At the time of discharge, the patient was able to ambulate appropriately to the level that he felt he could take care of himself at home. He performed a walking trial, which showed that he continued to need supplemental oxygen with exertion. We were able to acquire this for him prior to him going home. We discussed return precautions prior to the patient leaving. DISCHARGE INSTRUCTIONS: 1. Location: Home. 2. Diet: Carb conscious. 3. Activity: As tolerated by cardiopulmonary limits. 4. Followup: Established with PCP and follow up within 7 days. Job ID: [id number]
== END 2020-03-20 19:15 | disposition home or self-care (01) | DRG 177 ==
LOC: 2SW 16:08
PROVIDERS: ADMIT Student in an Organized Health Care Education/Training Program; ATTEND Student in an Organized Health Care Education/Training Program
PROC: 8E0ZXY6 Isolation (ICD-10-PCS; principal; 2020-03-14)
PROC: XW13325 Transfusion of Convalescent Plasma (Nonautologous) into Peripheral Vein, Percutaneous Approach, New Technology Group 5 (ICD-10-PCS; 2020-03-15)
DX: U07.1 COVID-19 (principal); J12.89 Other viral pneumonia; J96.01 Acute respiratory failure with hypoxia; N17.9 Acute kidney failure, unspecified; E11.9 Type 2 diabetes mellitus without complications; I10 Essential (primary) hypertension; E86.0 Dehydration; K76.0 Fatty (change of) liver, not elsewhere classified; Z79.51 Long term (current) use of inhaled steroids
CPT/HCPCS: 36415; 36416; 36430; 80053; 80074; 82728; 82805; 83036; 83615; 84145; 85025; 85379; 86140; 86780; 86850; 86900; 86901; 87389; J0456; J0696; J1100; J1650; J3490; J7050; J7512; P9017